=== PATIENT | male | born 1990 | race Caucasian/White ===

== ENCOUNTER 2023-10-26 00:07 | Inpatient (IN) ==
--- NOTE | 2023-10-26 00:33 | Emergency Department Note ---
Impression & Plan Carbon monoxide poisoning, Elevated troponin ED Provider Note CHIEF COMPLAINT: Possible carbon monoxide poisoning HISTORY OF PRESENTING ILLNESS: This 33-year-old male patient presents to the emergency department for evaluation of dizziness, confusion, nausea, and chest discomfort. 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 He states that he ran the saw for about 2-2.5 hours. He is now having headaches, dizziness, confusion, and some chest tightness. No previous history of carbon monoxide exposure in the past. He denies any tobacco use. Denies ever living in a city. Denies any abdominal pain. Denies any fevers. REVIEW OF SYSTEMS: See HPI for pertinent positives and pertinent negatives. ALLERGIES: NKDA MEDICATIONS: None PAST MEDICAL HISTORY: Denies pertinent past medical or pertinent past surgical history PHYSICAL EXAM: VITALS: Vitals are noted on the nurse's note and reviewed by myself. GENERAL: Non toxic, no acute distress, non-diaphoretic. SKIN: No skin flushing or abnormal skin rashes. Capillary refill <2 sec. EYES: PERRLA. EOMI. Conjunctivae without injection, sclerae without icterus. NOSE: Patent without discharge. MOUTH: Mucous membranes moist. Uvula midline. Airway patent. NECK: Supple without nuchal rigidity. HEART: Regular rate and rhythm without murmurs gallops or rubs. LUNGS: Clear to auscultation bilaterally without wheezes, rales or rhonchi. No retractions or accessory muscle use. ABDOMEN: Positive bowel sounds x 4. Normal tympanic percussion. Soft, nontender. No masses or organomegaly. Hernandez sign negative. No guarding or rebound tenderness. No focal RLQ or LLQ tenderness. MUSCULOSKELETAL: No gross musculoskeletal defects. NEURO: Patient was alert and oriented. No focal neurological deficits. DIFFERENTIAL DIAGNOSIS: Carbon monoxide poisoning, [place], PE, pneumonia, URI, acute intracranial abnormality, gastroenteritis, or others. ED COURSE AND MEDICAL DECISION MAKING: MONITOR: Continuous registered nurse cardiac: Order was placed for continuous registered nurse cardiac. Patient was placed on the registered nurse cardiac and continuous pulse ox. Patient was noted to be in normal sinus rhythm at an initial rate of 88 bpm per my interpretation. EKG: EKG was interpreted by myself as normal sinus rhythm at 73 bpm with no acute ST or T wave changes. Repeat EKG was interpreted by myself as normal sinus rhythm at 86 bpm with no acute ST or T wave changes and no significant change from his previous EKG. MEDICATIONS GIVEN: 1 L normal saline solution bolus. Zofran 4 mg IV, Tylenol 1000 mg p.o. INTERPRETATION OF LABS: I interpreted the labs with full lab results as below in the lab section of this note. White blood cell count elevated at 12.44. Hemoglobin normal at 15.4. Platelet count normal at 149. Potassium 3.1, glucose 122, and total bilirubin 1.1, but CMP otherwise normal. Lipase normal. Carboxyhemoglobin level elevated at 24.8 approximately 2 hours after the end of the patient's exposure. VBG was normal. Lactate was normal. High-sensitivity troponin was elevated at 40.5 with repeat high-sensitivity troponin increased to 65.7. CONSULTATIONS: I spoke with Anna from poison control who also consulted with the cage fighter. I spoke with the on-call hospitalist for admission. MDM SUMMARY: I examined the patient. The patient had exposure to carbon monoxide after using a concrete saw inside for approximately 2-1/2 hours. The patient started with the exposure at 8 PM and finished the exposure around 10:30 PM. The patient was placed on high flow 100% nonrebreather mask. An IV lock was placed and labs were drawn. Carboxyhemoglobin level drawn at 12:48 am was elevated at 24.8. The patient is not a smoker and has never lived in a city. The patient's initial troponin was elevated at 40.5 with a normal EKG. Repeat high- sensitivity troponin increased to 65.7, but his EKG remains normal. The patient initially had some chest pressure, but that resolved after he was started on the high flow oxygen. The patient did not have any additional episodes of chest pain while in the emergency department. The patient's symptoms did improve with the high flow oxygen as well as the Tylenol, Zofran, and IV fluids. VBG was normal. Lactate was normal. Additional laboratory studies as above. I contacted poison control and spoke with Anna who also discussed the case with the cage fighter at my request. The cage fighter did not feel the patient met criteria for hyperbaric chamber for treatment of the carbon monoxide poisoning. The patient is to continue with high flow oxygen for treatment. Due to the patient's significant carboxyhemoglobin level as well as elevated troponins, the patient will be admitted for further management. I spoke with the on-call hospitalist who agreed to admit the patient for further evaluation and treatment. Please refer to their dictation for further details. The patient's care was transferred in stable condition. DIAGNOSIS: Carbon monoxide poisoning Elevated troponin Past Med/Surg History Social History Smoking Status: Never smoker Preferred Language: Macedonian Feels Safe at Home: Yes Allergies Allergies Allergy/AdvReac Type Severity Reaction Status Date / Time No Known Allergies Allergy Verified 10/26/23 01:37 Home Meds Home Medications Medication Instructions Recorded Confirmed No Known Home Medications 04/14/21 10/26/23 Results & Data (ED) Vital Signs Vital Signs - 24 hr 10/26/23 00:13 10/26/23 00:45 10/26/23 00:50 Temperature 36.8 C Temperature Source Temporal Artery Scan Pulse Rate 83 83 Pulse Rate [Apical] Respiratory Rate 18 Respiratory Effort / Characteristics Non-Labored Spontaneous Respiratory Depth Normal Respiratory Pattern Regular Blood Pressure 117/79 Blood Pressure [Right Arm] Blood Pressure Mean 91 Blood Pressure Mean [Right Arm] Blood Pressure Position Sitting Pulse Oximetry 100 100 Oxygen Delivery Method Room Air Room Air Oxygen Flow Rate Sepsis Recent Fever Within 48 Hours No Sepsis New/Unexplained Change in Mental Status N/A Sepsis Action Taken by Nursing No Action Required 10/26/23 01:03 10/26/23 01:40 10/26/23 02:59 Temperature Temperature Source Pulse Rate 73 Pulse Rate [Apical] 93 H 89 Respiratory Rate 14 19 Respiratory Effort / Characteristics Non-Labored Spontaneous Respiratory Depth Respiratory Pattern Blood Pressure Blood Pressure [Right Arm] 132/85 Blood Pressure Mean Blood Pressure Mean [Right Arm] 100 Blood Pressure Position Pulse Oximetry 100 100 Oxygen Delivery Method Non-rebreather Oxygen Flow Rate 11 Sepsis Recent Fever Within 48 Hours Sepsis New/Unexplained Change in Mental Status Sepsis Action Taken by Nursing Laboratory Data 10/26/23 07:48 10/26/23 00:48 Lab Results 10/26/23 10/26/23 10/26/23 Range/Units 00:48 01:34 02:57 WBC 12.44 H (4.8-10.8) K/ul RBC 4.68 L (4.70-6.10) M/uL Hgb 15.4 (14.0-18.0) g/dl Hct 42.2 (42.0-52.0) % MCV 90.2 (80.0-100.0) fL MCH 32.9 (25.0-34.0) pg MCHC 36.5 H (32.0-36.0) g/dL RDW Std Deviation 38.8 (36.4-46.3) fL RDW Coeff of Philip 11.8 (11.5-14.5) % Plt Count 149 (130-400) K/uL MPV 10.4 (9.4-12.4) fL Immature Gran % (Auto) 0.3 % Neut % (Auto) 84.0 % Lymph % (Auto) 9.5 % [place] % (Auto) 5.3 % Eos % (Auto) 0.6 % Baso % (Auto) 0.3 % Neut # (Auto) 10.45 H (1.40-6.50) K/uL Lymph # (Auto) 1.18 L (1.20-3.40) K/uL [place] # (Auto) 0.66 H (0.11-0.59) K/uL Eos # (Auto) 0.07 (0.00-0.50) K/uL Baso # (Auto) 0.04 (0.00-0.20) K/uL Immature Gran # (Auto) 0.04 (0.01-0.20) K/uL VBG pH 7.40 (7.36-7.41) VBG pCO2 45 (38-50) mmHg VBG pO2 32 mmHg VBG HCO3 28 mmol/L VBG O2 Saturation 66.5 % VBG Base Excess 2.5 mEq/L Carboxyhemoglobin 24.8 H* % THgb Sodium 138 (136-145) mmol/L Potassium 3.1 L (3.5-5.1) mmol/L Chloride 102 (98-107) mmol/L Carbon Dioxide 25 (21-32) mmol/L Anion Gap 11 (3-11) BUN 23 (6-23) mg/dl Creatinine 1.01 (0.6-1.4) mg/dl Est Cr Clr Drug Dosing 89.6 ml/min Est GFR ( Amer) 112.0 ml/min Est GFR (Non-Af Amer) 96.6 ml/min BUN/Creatinine Ratio 22.8 H (10-20) Glucose 122 H (70-99(Fasting)) mg/dl Lactate 1.2 (0.4-2.0) mmol/L Calcium 9.8 (8.6-10.3) mg/dl Total Bilirubin 1.1 H (0.2-1.0) mg/dl AST 25 (13-39) U/L ALT 16 (7-52) U/L Alkaline Phosphatase 64 (34-104) U/L Troponin I High Sens 40.5 H 65.7 H* D (0-20) pg/ml Total Protein 7.6 (6.0-8.3) gm/dl Albumin 4.8 (3.4-5.0) gm/dl Globulin 2.8 (2.5-4.0) gm/dl Albumin/Globulin Ratio 1.7 (0.9-2) Lipase 17 (11-82) U/L Administered Medications Sodium Chloride (Nss) 1,000 mls @ 80 mls/hr IV .[id number] DOMINIC Stop: 10/26/23 18:39 Last Admin: 10/26/23 06:23 Dose: 80 mls/hr Documented By: CIERRA Discontinued Medications Acetaminophen (Acetaminophen 500 Mg Tab) 1,000 mg PO NOW STA Stop: 10/26/23 00:38 Last Admin: 10/26/23 00:56 Dose: 1,000 mg Documented By: MED Sodium Chloride (Nss) 1,000 mls @ 999 mls/hr IV .[id number] STA Stop: 10/26/23 01:37 Last Infusion: 10/26/23 02:15 Dose: Infused Documented By: practice billing associate: 10/26/23 00:58 Dose: 999 mls/hr Documented By: MED Ondansetron HCl (Ondansetron Inj 2 Mg/Ml 2 Ml Vial) 4 mg IV NOW STA Stop: 10/26/23 00:38 Last Admin: 10/26/23 00:58 Dose: 4 mg Documented By: MED Potassium Chloride (Potassium Chloride Crtab 20 Meq Tabcr) 40 meq PO NOW STA Stop: 10/26/23 03:41 Last Admin: 10/26/23 04:08 Dose: 40 meq Documented By: MED Discharge Plan Visit Data Chief Complaint: Carbon Monoxide Exposure Stated Complaint: DIZZY,CONFUSION,NAUSEA ED Provider: Dre Mejia ED Midlevel Provider: Hermila Lama Discharge Problem: Carbon monoxide poisoning, Elevated troponin Patient Disposition: Admitted As Inpatient Condition: Good Discharge Instructions Interventions: ED Discharge Assessment Last Done: 10/26/23 06:11 Discharge Problem: Carbon monoxide poisoning Qualifiers: Encounter type: initial encounter Injury intent: accidental or unintentional Q ualified Code(s): T58.91XA - Toxic effect of carbon monoxide from unspecified source, accidental (unintentional), initial encounter
[2023-10-26] MEDS ORDERED: ONDANSETRON INJ 2 MG/ML 2 ML VIAL IV STA (00:37)
[2023-10-26] MEDS ORDERED: ACETAMINOPHEN 500 MG TAB PO STA (00:37)
[2023-10-26] MEDS ORDERED: SODIUM CHLORIDE 0.9% 1,000 ML IV STA (00:37)
[2023-10-26 01:05] LABS: Basophils # (auto) 0.04 K/uL (0.00-0.20); Basophils % (auto) 0.3 %; Eosinophils # (auto) 0.07 K/uL (0.00-0.50); Eosinophils % (auto) 0.6 %; Hematocrit (blood only) 42.2 % (42.0-52.0); Hemoglobin 15.4 g/dl (14.0-18.0); Immature Granulocytes # (auto) 0.04 K/uL (0.01-0.20); Immature Granulocytes % (auto) 0.3 %; Lymphocytes # (auto) 1.18 K/uL (1.20-3.40); Lymphocytes % (auto) 9.5 %; Mean Corpuscular Hemoglobin 32.9 pg (25.0-34.0); Mean Corpuscular Hgb Conc 36.5 g/dL (32.0-36.0); Mean Corpuscular Volume 90.2 fL (80.0-100.0); Mean Platelet Volume 10.4 fL (9.4-12.4); Monocytes # (auto) 0.66 K/uL (0.11-0.59); Monocytes % (auto) 5.3 %; Neutrophils # (auto) 10.45 K/uL (1.40-6.50); Platelet Count 149 K/uL (130-400); RDW Coefficient of Variation 11.8 % (11.5-14.5); RDW Standard Deviation 38.8 fL (36.4-46.3); Red Blood Count 4.68 M/uL (4.70-6.10); White Blood Count 12.44 K/ul (4.8-10.8)
[2023-10-26 01:22] LABS: Albumin Globulin Ratio 1.7 (0.9-2); Albumin Level 4.8 gm/dl (3.4-5.0); BUN Creatinine Ratio 22.8 (10-20); Bilirubin,Total 1.1 mg/dl (0.2-1.0); Calcium 9.8 mg/dl (8.6-10.3); Creatinine Clr Calc Pharmacy 89.6 ml/min; Est GFR (Non-African American) 96.6 ml/min; Globulin 2.8 gm/dl (2.5-4.0); Potassium 3.1 mmol/L (3.5-5.1); Total Protein 7.6 gm/dl (6.0-8.3)
[2023-10-26 01:28] LABS: Troponin I High Sensitivity 40.5 pg/ml (0-20)
[2023-10-26 01:46] LABS: Base Excess VBG 2.5 mEq/L; HCO3 VBG 28 mmol/L; Oxygen Saturation VBG 66.5 %; PCO2 VBG 45 mmHg (38-50); PO2 VBG 32 mmHg
[2023-10-26] MEDS ORDERED: POTASSIUM CHLORIDE CRTAB 20 MEQ TABCR PO STA ×2 (03:40→10:26)
--- NOTE | 2023-10-26 04:14 | History & Physical Report ---
Date of Service October 26, 2023 Assessment & Plan (1) Carbon monoxide poisoning: Plan: 33-year-old male with no significant past medical history comes with carbon monoxide poisoning. 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 Chest pain was like heartburn lasted for about 20 minutes and no radiation. Had headaches but that got mostly resolved. In the ER VBG pH was okay carboxyhemoglobin was 24.8%, lactate was 1.2 and troponin was 40.5. He was placed on 100% nonrebreather. ER talk to the poison control and at this time they advised to continue oxygen via 100% nonrebreather and advised no need of hyperbaric oxygen at this time. Patient resting comfortably. Hemodynamically stable. Currently denies any headache. No blurred visions. No runny nose or sore throat. No cough. Currently denies any chest pain or shortness of breath. Currently no nausea. No abdominal pain. Normal bowel and bladder movements. During episode patient did not passed out. Carbon monoxide poisoning Patient has no significant medical history No history of smoking Carboxyhemoglobin on VBG was 24.8 Currently on 100% NRB mask Discussed with poison control and advised to continue on 100% NRB mask until his symptoms are resolved Advised to trend troponins Mild elevation of troponin Initially had chest pain but that got resolved Initial troponin is 40.5 and repeat is 65.7 Denies any chest pain at this time Will follow serial exams If continues to go high will get echo and cardiac consult DVT prophylaxis SCDs for now Disposition Telemetry floor Full code History of Present Illness Chief Complaint: Carbon monoxide poisoning Primary Care Provider: Riley Villaseñor MD 33-year-old male with no significant past medical history comes with carbon monoxide poisoning. 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 Chest pain was like heartburn lasted for about 20 minutes with no radiation of the pain Had headaches but that got mostly resolved. In the ER VBG pH was okay carboxyhemoglobin was 24.8%, lactate was 1.2 and troponin was 40.5. He was placed on 100% nonrebreather. ER talked to the poison control and at this time they advised to continue oxygen via 100% nonrebreather and advised no need of hyperbaric oxygen at this time. Patient resting comfortably. Hemodynamically stable. Currently denies any headache. No blurred visions. No runny nose or sore throat. No cough. Currently denies any chest pain or shortness of breath. Currently no nausea. No abdominal pain. Normal bowel and bladder movements. During episode patient did not passed out. Past med history. None as per patient Past surgical history. None as per patient Social history. Denies smoking. Alcohol occasional. Denies drug use. Family history. Father has hypertension and prediabetes. Paternal grandfather had colon cancer. Allergies Allergy/AdvReac Type Severity Reaction Status Date / Time No Known Allergies Allergy Verified 10/26/23 01:37 Home Medications Medication Instructions Recorded Confirmed Type No Known Home Medications 04/14/21 10/26/23 History Past Med/Surg History Social History Smoking Status: Never smoker Preferred Language: Tajik Feels Safe at Home: Yes Review of Systems Review of Systems: All systems reviewed & are unremarkable except as noted in HPI & below Physical Exam Physical Exam: General- Not in distress. Head- atraumatic Eyes- PERRL. ENT- oropharynx clear Neck- supple, no JVD. Lungs- clear to auscultation no wheezing or crackles. Heart- regular rhythm; no murmur, no gallop. Abdomen- normal bowel sounds, soft, nontender, no distension. Extremities- no pretibial edema, no erythema seen Neuro- alert, oriented x 3; PERRL, no facial palsy; no dysarthria; obeys commands, moves extremities. Skin- warm & dry Results & Data Results & Data Vital Signs (Past 12 Hours) Vital Signs Temp Pulse Pulse Resp BP BP Pulse Ox 10/26/23 02:59 89 19 10/26/23 01:40 93 H 14 132/85 100 10/26/23 01:03 73 100 10/26/23 00:50 100 10/26/23 00:45 83 10/26/23 00:13 36.8 C 83 18 117/79 100 O2 Del Method O2 Flow Rate 10/26/23 02:59 11 10/26/23 01:40 Non-rebreather 10/26/23 01:03 10/26/23 00:50 Room Air 10/26/23 00:45 10/26/23 00:13 Room Air Diagnostic Findings Laboratory Results WBC 12.44 K/ul (4.8-10.8) H 10/26/23 00:48 RBC 4.68 M/uL (4.70-6.10) L 10/26/23 00:48 Hgb 15.4 g/dl (14.0-18.0) 10/26/23 00:48 Hct 42.2 % (42.0-52.0) 10/26/23 00:48 MCV 90.2 fL (80.0-100.0) 10/26/23 00:48 MCH 32.9 pg (25.0-34.0) 10/26/23 00:48 MCHC 36.5 g/dL (32.0-36.0) H 10/26/23 00:48 RDW Std Deviation 38.8 fL (36.4-46.3) 10/26/23 00:48 RDW Coeff of Philip 11.8 % (11.5-14.5) 10/26/23 00:48 Plt Count 149 K/uL (130-400) 10/26/23 00:48 MPV 10.4 fL (9.4-12.4) 10/26/23 00:48 Immature Gran % (Auto) 0.3 % 10/26/23 00:48 Neut % (Auto) 84.0 % 10/26/23 00:48 Lymph % (Auto) 9.5 % 10/26/23 00:48 [place] % (Auto) 5.3 % 10/26/23 00:48 Eos % (Auto) 0.6 % 10/26/23 00:48 Baso % (Auto) 0.3 % 10/26/23 00:48 Neut # (Auto) 10.45 K/uL (1.40-6.50) H 10/26/23 00:48 Lymph # (Auto) 1.18 K/uL (1.20-3.40) L 10/26/23 00:48 [place] # (Auto) 0.66 K/uL (0.11-0.59) H 10/26/23 00:48 Eos # (Auto) 0.07 K/uL (0.00-0.50) 10/26/23 00:48 Baso # (Auto) 0.04 K/uL (0.00-0.20) 10/26/23 00:48 Immature Gran # (Auto) 0.04 K/uL (0.01-0.20) 10/26/23 00:48 VBG pH 7.40 (7.36-7.41) 10/26/23 01:34 VBG pCO2 45 mmHg (38-50) 10/26/23 01:34 VBG pO2 32 mmHg 10/26/23 01:34 VBG HCO3 28 mmol/L 10/26/23 01:34 VBG O2 Saturation 66.5 % 10/26/23 01:34 VBG Base Excess 2.5 mEq/L 10/26/23 01:34 Carboxyhemoglobin 24.8 % THgb H* 10/26/23 00:48 Sodium 138 mmol/L (136-145) 10/26/23 00:48 Potassium 3.1 mmol/L (3.5-5.1) L 10/26/23 00:48 Chloride 102 mmol/L (98-107) 10/26/23 00:48 Carbon Dioxide 25 mmol/L (21-32) 10/26/23 00:48 Anion Gap 11 (3-11) 10/26/23 00:48 BUN 23 mg/dl (6-23) 10/26/23 00:48 Creatinine 1.01 mg/dl (0.6-1.4) 10/26/23 00:48 Est Cr Clr Drug Dosing 89.6 ml/min 10/26/23 00:48 Est GFR ( Amer) 112.0 ml/min 10/26/23 00:48 Est GFR (Non-Af Amer) 96.6 ml/min 10/26/23 00:48 BUN/Creatinine Ratio 22.8 (10-20) H 10/26/23 00:48 Glucose 122 mg/dl (70-99(Fasting)) H 10/26/23 00:48 Lactate 1.2 mmol/L (0.4-2.0) 01/19/24 01:34 Calcium 9.8 mg/dl (8.6-10.3) 10/26/23 00:48 Total Bilirubin 1.1 mg/dl (0.2-1.0) H 10/26/23 00:48 AST 25 U/L (13-39) 10/26/23 00:48 ALT 16 U/L (7-52) 10/26/23 00:48 Alkaline Phosphatase 64 U/L (34-104) 10/26/23 00:48 Troponin I High Sens 65.7 pg/ml (0-20) H* D 10/26/23 02:57 Total Protein 7.6 gm/dl (6.0-8.3) 10/26/23 00:48 Albumin 4.8 gm/dl (3.4-5.0) 10/26/23 00:48 Globulin 2.8 gm/dl (2.5-4.0) 10/26/23 00:48 Albumin/Globulin Ratio 1.7 (0.9-2) 10/26/23 00:48 Lipase 17 U/L (11-82) 10/26/23 00:48 ECG Additional Comments: ECG. Normal sinus rhythm with a rate of 73 ,no acute ST changes seen. Code Status & VTE Plan VTE Prophylaxis Plan VTE Prophylaxis will be ordered: Yes
[2023-10-26] MEDS ORDERED: SODIUM CHLORIDE 0.9% 1,000 ML IV SCH (06:10)
[2023-10-26] MEDS ORDERED: NITROGLYCERIN SL 0.4 MG/TAB TAB SL PRN (06:10)
[2023-10-26 08:20] LABS: Basophils # (auto) 0.02 K/uL (0.00-0.20); Basophils % (auto) 0.3 %; Eosinophils # (auto) 0.07 K/uL (0.00-0.50); Eosinophils % (auto) 1.1 %; Hematocrit (blood only) 42.8 % (42.0-52.0); Hemoglobin 15.1 g/dl (14.0-18.0); Immature Granulocytes # (auto) 0.02 K/uL (0.01-0.20); Immature Granulocytes % (auto) 0.3 %; Lymphocytes # (auto) 1.33 K/uL (1.20-3.40); Lymphocytes % (auto) 21.1 %; Mean Corpuscular Hemoglobin 32.4 pg (25.0-34.0); Mean Corpuscular Hgb Conc 35.3 g/dL (32.0-36.0); Mean Corpuscular Volume 91.8 fL (80.0-100.0); Mean Platelet Volume 10.8 fL (9.4-12.4); Monocytes # (auto) 0.38 K/uL (0.11-0.59); Neutrophils # (auto) 4.48 K/uL (1.40-6.50); Neutrophils % (auto) 71.2 %; Platelet Count 158 K/uL (130-400); RDW Coefficient of Variation 11.9 % (11.5-14.5); Red Blood Count 4.66 M/uL (4.70-6.10)
[2023-10-26 08:27] LABS: BUN Creatinine Ratio 21.4 (10-20); Calcium 8.8 mg/dl (8.6-10.3); Creatinine Clr Calc Pharmacy 107.8 ml/min; Est GFR (African American) 132.4 ml/min; Est GFR (Non-African American) 114.2 ml/min; Magnesium 1.8 mg/dl (1.7-2.4); Potassium 3.4 mmol/L (3.5-5.1)
[2023-10-26 08:35] LABS: Troponin I High Sensitivity 61.2 pg/ml (0-20)
--- NOTE | 2023-10-26 18:14 | Discharge Summary ---
Discharge Summary Date of Service October 26, 2023 Notes For Next Care Provider Medication Changes From Visit None Admission HPI Per Admitting Provider 33-year-old male with no significant past medical history comes with carbon monoxide poisoning. 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 Chest pain was like heartburn lasted for about 20 minutes with no radiation of the pain Had headaches but that got mostly resolved. In the ER VBG pH was okay carboxyhemoglobin was 24.8%, lactate was 1.2 and troponin was 40.5. He was p laced on 100% nonrebreather. ER talked to the poison control and at this time they advised to continue oxygen via 100% nonrebreather and advised no need of hyperbaric oxygen at this time. Patient resting comfortably. Hemodynamically stable. Currently denies any headache. No blurred visions. No runny nose or sore throat. No cough. Currently denies any chest pain or shortness of breath. Currently no nausea. No abdominal pain. Normal bowel and bladder movements. During episode patient did not passed out. Past med history. None as per patient Past surgical history. None as per patient Social history. Denies smoking. Alcohol occasional. Denies drug use. Family history. Father has hypertension and prediabetes. Paternal grandfather had colon cancer. Admission Exam Per Admitting Provider General- Not in distress. Head- atraumatic Eyes- PERRL. ENT- oropharynx clear Neck- supple, no JVD. Lungs- clear to auscultation no wheezing or crackles. Heart- regular rhythm; no murmur, no gallop. Abdomen- normal bowel sounds, soft, nontender, no distension. Extremities- no pretibial edema, no erythema seen Neuro- alert, oriented x 3; PERRL, no facial palsy; no dysarthria; obeys commands, moves extremities. Skin- warm & dry Principal Dx & Hospital Course #1 = Principal Diagnosis (1) Carbon monoxide poisoning: Mr. Seay is 33-year-old male with no significant past medical history comes with carbon monoxide poisoning. 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 Chest pain was like heartburn lasted for about 20 minutes and no radiation. Had headaches but that got mostly resolved. In the ER VBG pH was okay carboxyhemoglobin was 24.8%, lactate was 1.2 and troponin was 40.5. He was placed on 100% nonrebreather. ER talk to the poison control and at this time they advised to continue oxygen via 100% nonrebreather and advised no need of hyperbaric oxygen at this time. Patient resting comfortably. Hemodynamically stable. Currently denies any headache. No blurred visions. No runny nose or sore throat. No cough. Currently denies any chest pain or shortness of breath. Currently no nausea. No abdominal pain. Normal bowel and bladder movements. During episode patient did not passed out. Patient reports feeling much improved and at baseline. Chest pain and confusion resolved. Repeat carboxyhemoglobin 1.3% Discussed further dispo planning as curbside with [place] over [place] [employer]--reports that if symptoms resolve and appropriate downtrend noted, discharge is acceptable. Upon discharge, patient was laughing, eating well, and ambulating without difficulty. Education about ventilation in areas where tools/fumes will be present was had, as well as encouraged carbon monoxide detector. #Carbon monoxide poisoning Patient has no significant medical history No history of smoking Carboxyhemoglobin on VBG was 24.8 on admission, down to 1.3% on repeat Symptoms resolved with NRB #Mild elevation of troponin *downtrended Initially had chest pain but that got resolved Initial troponin is 40.5 and repeat is 65.7 Denies any chest pain at this time Discharge Exam Constitutional WD/WN, vitals as above Respiratory normal respiratory effort, lungs clear to auscultation Cardiovascular RRR, no murmur, no edema Gastrointestinal (Abdomen) normal bowel sounds, soft, nontender, no hepatosplenomegaly Skin no rashes, warm and dry Neurologic PERRL, EOMI, accommodation nl, no face palsy, no dysarthria Updated Medication List Medication Instructions Recorded Confirmed Type No Known Home Medications 04/14/21 10/26/23 History Hospital Stay Data Consultations 10/26/23 02:08 ED Decision to Admit Stat Pending Results Patient Have Any Pending Studies at Discharge: No Discharge Instructions Given to Patient (Per Discharging Provider) You were admitted due to carbon monoxide poisoning. You were treated with high- flow oxygen with resolution of your values to normal. It is imperative that you work in a well ventilated area and consider future portable carbon monoxide detectors/installed in areas where burned heat sources will be used (gas fueled equipment, pellet-fired stoves/wood burning, large volumes of exhaust). Total Time Total Time Spent Total Time Spent (In Minutes): 55
--- NOTE | 2023-10-26 18:57 | Electrocardiogram Report ---
Test Reason : Blood Pressure : / mmHG Vent. Rate : 086 BPM Atrial Rate : 086 BPM P-R Int : 128 ms QRS Dur : 096 ms QT Int : 396 ms P-R-T Axes : 076 027 058 degrees QTc Int : 473 ms Normal sinus rhythm Possible Left atrial enlargement Borderline ECG When compared with ECG of 26-OCT-2023 00:51, No significant change was found Confirmed by Nj Pagan ([id number]) on 10/26/2023 6:57:16 PM Referred By: REFERRED SELF Confirmed By:Nj Pagan
--- NOTE | 2023-10-26 18:57 | Electrocardiogram Report ---
Test Reason : Blood Pressure : / mmHG Vent. Rate : 073 BPM Atrial Rate : 073 BPM P-R Int : 156 ms QRS Dur : 088 ms QT Int : 390 ms P-R-T Axes : 080 048 063 degrees QTc Int : 429 ms Normal sinus rhythm Normal ECG When compared with ECG of 14-APR-2021 14:40, No significant change was found Confirmed by Nj Pagan ([id number]) on 10/26/2023 6:57:02 PM Referred By: REFERRED SELF Confirmed By:Nj Pagan
== END 2023-10-26 14:35 | disposition home or self-care (01) | DRG 918 ==
LOC: ED 00:07 → EDINP 03:51